=== PATIENT | male | born 1935 | race Caucasian/White ===

== ENCOUNTER 2021-05-27 07:13 | Day surgery (SDC) | payer MEDICARE, OTHER ==
[2021-05-20 12:32] LABS: BASOPHILS # (AUTO) 0.1 X10'3 (0-0.2); BASOPHILS % (AUTO) 0.9 % (0-1); EOSINOPHILS % (AUTO) 0.6 % (0-6); LYMPHOCYTES % (AUTO) 15.2 % (21-51); MEAN CORPUSCULAR HEMOGLOBIN 30.4 PG (27.0-31.0); MEAN CORPUSCULAR HGB CONC 32.8 g/dL (33.0-36.5); MEAN CORPUSCULAR VOLUME 92.9 FL (78-98); MEAN PLATELET VOLUME 7.6 FL (7.4-10.4); MONOCYTES # (AUTO) 0.5 X10'3 (0-0.9); NEUTROPHILS # (AUTO) 4.7 X10'3 (1.8-7.7); NEUTROPHILS % (AUTO) 75.3 % (42-75); PRE OP HEMATOCRIT 42.6 % (42.0-52.0); PRE OP HEMOGLOBIN 13.9 g/dL (14.0-17.9); PRE OP PLATELET COUNT 189 X10'3 (140-440); RED BLOOD COUNT 4.58 X10'6 (4.70-6.10); RED CELL DISTRIBUTION WIDTH 14.1 % (11.5-14.5)
[2021-05-20 12:52] LABS: ALBUMIN/GLOBULIN RATIO 1.2 (1.1-1.5); ALKALINE PHOSPHATASE 84 IU/L (46-116); BLOOD UREA NITROGEN 19 MG/DL (7-18); BUN/CREATININE RATIO 17.1 (5.4-32.0); CALCIUM 9.2 MG/DL (8.5-10.1); CHLORIDE 107 MMOL/L (99-107); CREATININE 1.11 MG/DL (0.60-1.10); PRE OP ALT 26 U/L (30-65); PRE OP ANION GAP 7 (8-16); PRE OP AST 19 U/L (10-37); PRE OP BILIRUB, TOTAL 0.4 MG/DL (0.0-1.0); PRE OP GLUCOSE 91 MG/DL (70-104); PRE OP POTASSIUM 4.7 MMOL/L (3.4-5.1); PRE OP SODIUM 143 MMOL/L (135-145); TOTAL PROTEIN 7.4 G/DL (6.4-8.2); eGFR 63 ML/MIN
[~2021-05-27] VITALS: Ht 177.8 cm; Wt 62.8 kg
[2021-05-27] VITALS (19 sets, daily range): BP systolic 116–146; BP diastolic 60–93
[~2021-05-27 07:13] MED LIST: ASPI81TA52 PO; METF-900 PO; cefazolin/dext.iso 2gm/50ml IV ONE; famotidine 20mg tablet PO ONE; ringers solution, lacted 1,000 ML IV SCH
[2021-05-27] MEDS ORDERED: LIDOcaine 1% (10mg/ml)w/preservative inj. 20ml MDV ONE (08:46)
[2021-05-27] MEDS ORDERED: BUPIVAcaine 0.5% inj/PF 30 ML ONE (08:46)
[2021-05-27] MEDS ORDERED: midazolam 1 mg/ML 2ml injection ONE (08:59)
[2021-05-27] MEDS ORDERED: FENTANYL CITRATE/PF 50 MCG/1 ML VIAL ONE ×2 (08:59)
[2021-05-27] MEDS ORDERED: ondansetron/PF 4mg/2ml inj IV PRN (09:00)
[2021-05-27] MEDS ORDERED: labetalol 20mg/4ml (5mg/ml) syringe IV PRN (09:00)
[2021-05-27] MEDS ORDERED: ringers solution, lacted 1,000 ML IV SCH (09:00)
[2021-05-27] MEDS ORDERED: hydrALAZINE 20mg/ml inj. IV PRN (09:00)
[2021-05-27] MEDS ORDERED: acetaminophen 1,000mg/100ml IV 100 ML IV PRN (09:00)
[2021-05-27] MEDS ORDERED: proCHLORperazine 10 MG/2 ml inj IV PRN (09:00)
[2021-05-27] MEDS ORDERED: meperidine/PF 25mg/ml syringe IV PRN ×3 (09:00)
[2021-05-27] MEDS ORDERED: morphine 4 MG/ML inj SYRINge IV PRN (09:00)
[2021-05-27] MEDS ORDERED: morphine 2 MG/ML inj. syringe IV PRN (09:00)
[2021-05-27] MEDS ORDERED: acetaminophen 1,000mg/100ml IV 100 ML IV ONE (09:10)
[2021-05-27] MEDS ORDERED: propofol inj 20 ML IV ONE (09:10)
[2021-05-27] MEDS ORDERED: LIDOcaine 2% (20mg/ml) 5ml vial ONE (09:10)
[2021-05-27] MEDS ORDERED: dexamethasone sod phosphate 4mg/ml inj. ONE (09:11)
[2021-05-27] MEDS ORDERED: ondansetron/PF 4mg/2ml inj ONE (09:11)
[2021-05-27] MEDS ORDERED: ePHEDrine 50MG/ML INJ. ONE (09:12)
[2021-05-27] MEDS ORDERED: 0.9 % SODIUM CHLORIDE 10 ML VIAL ONE (09:12)
[2021-05-27] MEDS ORDERED: rocuronium 10mg/ml inj IV ONE (09:21)
[2021-05-27] MEDS ORDERED: neostigmine methylsulfate 1 MG/ML 10ml vial ONE (10:37)
[2021-05-27] MEDS ORDERED: glycopyrrolate 0.2mg/ml inj ONE (10:37)
--- NOTE | 2021-05-27 10:48 | NUR ---
Received from OR via [facility], accompanied by Anesthesiologist DR GALLEGO and report given by Anesthesiologist. PT VERY DROWSY, NO S/S OF DISTRESS/DISCOMFORT. ABDOMEN W/3 LAP SITES W/BANDAIDS CDI. Addendum: 05/27/21 at 1059 by Alisson Wise RN Amended: Links added.
[2021-05-27] MEDS ORDERED: HYDROcodone/acetaminophen 5mg/325mg tablet PO PRN (11:00)
--- NOTE | 2021-05-27 13:35 | NUR ---
PT UP AND AMBULATED, ATTEMPT VOID, UNABLE. BLADDER SCANNED FOR 40 ML URINE, PT GIVEN MORE FLUIDS TO DRINK, PAIN IMPROVED. Addendum: 05/27/21 at 1400 by Alisson Wise RN Amended: Links added.
--- NOTE | 2021-05-27 16:17 | NUR ---
PT REMAINS COMFORTABLE, RESCANNED BLADDER FOR 498 ML'S, PT UP AMBULATING, ATTEMPTING TO VOID. Addendum: 05/27/21 at 1618 by Alisson Wise RN Amended: Links added.
--- NOTE | 2021-05-27 17:34 | NUR ---
PT HAS BEEN ABLE TO VOID X 3 W/LESS THAN 10 ML IN BLADDER. Addendum: 05/27/21 at 1738 by Alisson Wise RN Amended: Links added.
--- NOTE | 2021-05-27 18:18 | NUR ---
PT COMFORTABLE, HAS VOIDED W/SCANT AMT LEFT IN BLADDER PER BLADDER SCANNER. OK TO D/C PT HOME PER DR CABRERA. PT STABLE AND ABLE TO AMBULATE SAFELY. D/C INSTRUCTIONS GIVEN AND GONE OVER W/PT WHO VERBALIZED UNDERSTANDING. PT D/CD TO HOME VIA W/C TO PRIVATE VEHICLE W/O INCIDENT. Addendum: 05/27/21 at 1835 by Alisson Wise RN Amended: Links added.
== END 2021-05-27 18:18 | disposition home or self-care (01) ==
LOC: PAS 07:13
PROVIDERS: ATTEND Surgery
DX: K40.20 Bilateral inguinal hernia, without obstruction or gangrene, not specified as recurrent (principal); E11.9 Type 2 diabetes mellitus without complications; I10 Essential (primary) hypertension; M19.90 Unspecified osteoarthritis, unspecified site; Z20.822 Contact with and (suspected) exposure to COVID-19; Z85.46 Personal history of malignant neoplasm of prostate; Z98.890 Other specified postprocedural states; Z90.79 Acquired absence of other genital organ(s); Z79.82 Long term (current) use of aspirin; Z79.84 Long term (current) use of oral hypoglycemic drugs; Z87.891 Personal history of nicotine dependence; Z72.89 Other problems related to lifestyle
CPT/HCPCS: 36415; 49650; 80053; 82948; 85025; 93005; C1781; J0131; J1100; J2250; J2405; J2704; J2710; J3010; J3490; J7030; J7120; S0020; U0003; U0005; Z7506; Z7508; Z7512; A4215; A4618